=== PATIENT | male | born 1985 | race Caucasian/White ===

== ENCOUNTER 2016-12-26 11:07 | Emergency (ER) | payer SELFPAY ==
[2016-12-26 11:29] LABS: BASOPHIL# 0.1 X 10^3uL (0.0-0.1); BASOPHILS 3.2 % (0.0-2.0); EOSINOPHILS 0.9 % (0.0-6.0); HEMATOCRIT 51.4 % (42.0-54.0); LYMPHOCYTES 19.2 % (20.0-40.0); LYMPHOCYTES# 0.7 X 10^3uL (0.8-3.8); MEAN CELL VOLUME 83.3 fL (80.0-100.0); MEAN CORPUSCULAR HEMOGLOBIN 29.1 pg (29.0-35.0); MEAN PLATELET VOLUME 7.2 fL (7.4-10.4); MONOCYTES 9.4 % (2.0-10.0); MONOCYTES# 0.4 X 10^3uL (0.2-1.0); NEUTROPHILS 67.3 % (54.0-75.0); NEUTROPHILS# 2.5 X 10^3uL (2.6-6.7); PLATELET COUNT 125 X 10^3uL (130-440); RED BLOOD COUNT 6.18 X 10^6uL (4.20-6.10); WHITE BLOOD COUNT 3.7 X 10^3uL (3.9-10.7)
[2016-12-26] MEDS ORDERED: ONDANSETRON HCL 4 MG/2 ML VIAL ONE (11:34)
[2016-12-26 11:39] LABS: A/G RATIO 1.3; ALKALINE PHOSPHATASE 79 U/L (38-126); ALT 177 U/L (21-72); AST 73 U/L (17-59); BILIRUBIN, TOTAL 1.9 mg/dL (0.2-1.3); BLOOD UREA NITROGEN 13 mg/dL (9-20); CALCIUM 9.4 mg/dL (8.4-10.2); CHLORIDE 101 mmol/L (98-107); EST GLOMERULAR FILTRATION RATE > 60 mL/min; GLUCOSE 75 mg/dL (70-100); MAGNESIUM 1.9 mg/dL (1.6-2.3); POTASSIUM 4.4 mmol/L (3.5-5.1); SODIUM 142 mmol/L (137-145); TOTAL PROTEIN 8.8 g/dL (6.3-8.2)
[2016-12-26] MEDS ORDERED: KETOROLAC TROMETHAMINE 30 MG/ML VIAL ONE (12:18)
--- NOTE | 2016-12-26 14:18 | ER NURSING DOCUMENTATION ---
Nurse's Notes [facility] Name:Pantera Nuñez Age:31 yrs Sex:Male :1985 Arrival Date:12/26/2016 Time:11:07 Bed1 Private MD: Diagnosis:Lack of Heat - Inadequate Housing;Dehydration Presentation: 12/26 11:10 Acuity: HOWARD 3 11:27 Presenting complaint: Patient states: WAS STUCK IN A REMOTE CABIN FOR 5 DAYS WITHOUT HEAT OR ELECTRICITY. WAS ABLE TO DRINK SOME WATER AND HAD A FEW SNACKS. C/O NAUSEA, NO EMESIS, RODRIGUEZ, PROD COUGH AND SL ST. Transition of care: patient was not received from another setting of care. Care prior to arrival:. 11:27 Method Of Arrival: EMS: 410 Triage Assessment: 11:51 Compartment Syndrome symptoms:. General: Appears in no apparent distress, Behavior is lc cooperative, pleasant. Pain: Denies pain. Respiratory: Airway is patent Respiratory effort is even, unlabored, Breath sounds are clear bilaterally. Reports cough that is productive. GI: Abdomen is flat, Abd is soft and non tender X 4 quads. Reports nausea, Denies vomiting. Derm: Skin is pink, warm & dry. Historical: - Allergies: No known drug Allergies; - Home Meds: 1. gabapentin oral - PMHx: BIPOLAR DISORDER; - PSHx: ANKLE; - Tetanus: < 10 years. - Ebola Screening: : Patient negative for fever greater than or equal to 101.5 degrees Fahrenheit, and additional compatible Ebola Virus Disease symptoms. Patient denies exposure to infectious person. Patient denies travel to an Ebola-affected area in the 21 days before illness onset. No symptoms or risks identified at this time. . - Immunization history: Flu Vaccine < 1 year. - Social history: Smoking status: Patient states was never smoker of tobacco. Screenin:56 Infectious Disease Risk None. Abuse screen: Denies threats or abuse. Denies injuries lc from another. Nutritional screening: NO HOT FOOD FOR 5 DAYS. Assessment: 11:56 See Triage Assessment done by same RN. 13:06 Reassessment: Patient denies pain at this time. Patient states feeling better. Patient lc states symptoms have improved. Patient appears in no apparent distress at this time. FEELS MUCH BETTER, UP TO BR TO VOID. ATE MEAL AND PO HYDRATED. WORKING ON RIDE HOME NOW. . Vital Signs: 11:20 BP 114 / 72; Pulse 75; Resp 16; Temp 99.2; Pulse Ox 98% on R/A; Weight 90.72 kg; Height lc 6 ft. 1 in. (185.42 cm); Pain 2/10; 13:07 BP 120 / 63; Pulse 86; Resp 16; Pulse Ox 93% ; Pain 1/10; lc 14:14 Pulse 78; Resp 16; Pulse Ox 91% on R/A; Pain 0/10; lc 11:20 Body Mass Index 26.39 (90.72 kg, 185.42 cm) ED Course: 11:09 Patient arrived in ED. ds 11:10 Alka Dueñas, ANGELINA is Primary Nurse. 11:11 Triage completed. 11:11 Eduardo Albert MD is Attending Physician. 11:30 Labs drawn. (by ED staff). Sent per order to lab. Inserted peripheral IV: 22 gauge in lc left forearm and blood collected. 11:57 Valuables Remains with patient Patient has correct armband on for positive lc identification. Bed in low position. Call light in reach. Warm blanket given. Diet: Patient given snack. HOT MEAL AFTER. Administered Medications: 11:30 Drug: NS 0.9% 1000 ml; Route: IV; Rate: bolus; Site: left forearm; lc 12:19 Follow up: IV Status: Completed infusion; IV Intake: 1000ml 11:30 Drug: Zofran 4 mg; Route: IVP; Infused Over: 2 mins; Site: left forearm; lc 12:18 Follow up: Response: Nausea is decreased 12:09 Drug: Toradol 30 mg; Route: IVP; Site: left forearm; lc 13:05 Follow up: Response: Pain is decreased 12:19 Drug: NS 0.9% 1000 ml; Route: IV; Rate: bolus; Site: left forearm; lc 14:00 Follow up: IV Status: Completed infusion; IV Intake: 1000ml lc Intake: 12:19 IV: 1000ml; Total: 1000ml. lc 14:00 IV: 1000ml; Total: 2000ml. lc Outcome: 12:45 Discharge ordered by . 14:14 Discharged to home ambulatory. 14:14 Condition: stable 14:14 Discharge Assessment: Patient awake, alert and oriented x 3. No cognitive and/or functional deficits noted. Patient verbalized understanding of disposition instructions. 14:14 Discharge instructions given to patient, Instructed on discharge instructions, follow up and referral plans. GAVE INFO ON [facility] [place], TRYING TO REACH A FRIEND IN [place]. Demonstrated understanding of instructions. 14:17 Patient left the ED. rosemary 12/27 11:09 Discharge F/U Call: Unable to reach: non-working number st Signatures: Kathy York RN Alka Romano RN RN lc Srot, Eloise, Duglas Reg Eduardo Fung MD MD jm
--- NOTE | 2016-12-26 14:18 | ER PHYSICIAN DOCUMENTATION ---
Physician Documentation [facility] Name:Pantera Nuñez Age:31 yrs Sex:Male :1985 Arrival Date:12/26/2016 Time:11:07 Bed1 Private MD: Eduardo Le Disposition: 12/26/16 12:45 Discharged to Home/Self Care. Impression: Lack of Heat - Inadequate Housing, Dehydration. - Condition is Good. - Discharge Instructions: NAUSEA VOMITING 6yAdult - VOMITING (7y-Adult). - Medical Reconciliation form form. - Follow up: Private Physician; When: As needed; Reason: Continuance of care. - Problem is new. - Symptoms have improved. HPI: 12/26 12:00 This 31 yrs old Male presents to ER via EMS with complaints of Cold Exposure. jm 12:00 Pt has been stuck in his cabin for over 5 days w/o minimal food, water or head. He jm finally decided to hike out today, but he is very weak and dizzy. . Onset: The symptom(s)/episode began/occurred today. The patient has not experienced similar symptoms in the past. Historical: - Allergies: No known drug Allergies; - Home Meds: 1. gabapentin oral - PMHx: BIPOLAR DISORDER; - PSHx: ANKLE; - Tetanus: < 10 years. - Ebola Screening: : Patient negative for fever greater than or equal to 101.5 degrees Fahrenheit, and additional compatible Ebola Virus Disease symptoms. Patient denies exposure to infectious person. Patient denies travel to an Ebola-affected area in the 21 days before illness onset. No symptoms or risks identified at this time. . - Immunization history: Flu Vaccine < 1 year. - Social history: Smoking status: Patient states was never smoker of tobacco. ROS: 12:00 Constitutional: Negative for fever. jm 12:00 Abdomen/GI: Positive for nausea, Negative for abdominal pain, vomiting, diarrhea. 12:00 Neuro: Positive for dizziness, weakness. Exam: 12:00 Constitutional: The patient appears alert, awake, comfortable. 12:00 Cardiovascular: Rate: normal, Rhythm: regular. 12:00 Respiratory: Respirations: normal, Breath sounds: are normal. 12:00 Abdomen/GI: Bowel sounds: normal, Palpation: abdomen is soft and non-tender. 12:00 Neuro: Mentation: is normal, Gait: is steady. Vital Signs: 11:20 BP 114 / 72; Pulse 75; Resp 16; Temp 99.2; Pulse Ox 98% on R/A; Weight 90.72 kg; Height lc 6 ft. 1 in. (185.42 cm); Pain 2/10; 13:07 BP 120 / 63; Pulse 86; Resp 16; Pulse Ox 93% ; Pain 1/10; lc 14:14 Pulse 78; Resp 16; Pulse Ox 91% on R/A; Pain 0/10; lc 11:20 Body Mass Index 26.39 (90.72 kg, 185.42 cm) MDM: 11:11 Patient medically screened. 14:29 Differential Diagnosis dehydration and mild starvation. . Data reviewed: vital signs, nurses notes, lab test result(s), and as a result, I will discharge patient. Counseling: I had a detailed discussion with the patient and/or guardian regarding: the historical points, exam findings, and any diagnostic results supporting the discharge/admit diagnosis, lab results, the need for outpatient follow up, with the patient's primary care provider. 12/26 11:40 Order name: COMPREHENSIVE METABOLIC PANEL; Complete Time: 11:44 [facility] 12/26 11:40 Order name: MAGNESIUM; Complete Time: 11:44 [facility] 12/26 11:40 Order name: PHOSPHORUS; Complete Time: 11:44 [facility] 12/26 11:41 Order name: CBC AUTO DIF, MDIF/RMOR IF IND; Complete Time: 11:44 [facility] 12/26 11:20 Order name: Iv Saline Lock; Complete Time: 12:09 12/26 11:20 Order name: PO Challenge; Complete Time: 12:10 Dispensed Medications: 11:30 Drug: NS 0.9% 1000 ml; Route: IV; Rate: bolus; Site: left forearm; lc 12:19 Follow up: IV Status: Completed infusion; IV Intake: 1000ml 11:30 Drug: Zofran 4 mg; Route: IVP; Infused Over: 2 mins; Site: left forearm; lc 12:18 Follow up: Response: Nausea is decreased lc 12:09 Drug: Toradol 30 mg; Route: IVP; Site: left forearm; lc 13:05 Follow up: Response: Pain is decreased 12:19 Drug: NS 0.9% 1000 ml; Route: IV; Rate: bolus; Site: left forearm; lc 14:00 Follow up: IV Status: Completed infusion; IV Intake: 1000ml lc Signatures: Alka Dueñas RN RN lc Eduardo Albert MD MD jm
== END 2016-12-26 14:18 | disposition home or self-care (01) ==
LOC: ER 11:07
DX: E86.0 Dehydration (principal); R53.1 Weakness; R42 Dizziness and giddiness; R11.0 Nausea; T69.8XXA Other specified effects of reduced temperature, initial encounter; Z59.1 Inadequate housing; X37.2XXA Blizzard (snow)(ice), initial encounter
CPT/HCPCS: 80053; 83735; 84100; 85025; 96361; 96374; 96375; 99284; A0425; A0429; J1885; J2405